=== PATIENT | female | born 1970 | race African-American/Black ===

== ENCOUNTER 2016-10-22 14:42 | Emergency (ER) | payer OTHER, SELFPAY ==
[2016-10-22] MEDS ORDERED: Ketorolac Tromethamine 30 MG/ML VIAL ONE (15:06)
[2016-10-22] MEDS ORDERED: Acetaminophen 500 MG TAB ONE (15:06)
== END 2016-10-22 15:28 | disposition home or self-care (01) ==
LOC: MADERS 14:42
DX: M54.5 Low back pain (principal)
CPT/HCPCS: 96372; J1885

== ENCOUNTER 2017-07-17 09:20 | Emergency (ER) | payer OTHER ==
[2017-07-17] MEDS ORDERED: AMOXicillin 250 MG CAP ONE (10:03)
[2017-07-17] MEDS ORDERED: Benzonatate 100 MG CAP ONE (10:03)
[2017-07-17] MEDS ORDERED: Naproxen 500 MG TAB ONE (10:03)
== END 2017-07-17 10:10 | disposition home or self-care (01) ==
LOC: MADERS 09:20
DX: J20.9 Acute bronchitis, unspecified (principal)
CPT/HCPCS: 99283

== ENCOUNTER 2018-11-01 11:32 | Emergency (ER) | payer OTHER | END 2018-11-01 12:14 | disposition home or self-care (01) | LOC: MADERS 11:32 | DX: M54.5 Low back pain (principal) | CPT/HCPCS: 99281 ==

== ENCOUNTER 2021-03-04 17:49 | Emergency (ER) | payer OTHER | END 2021-03-04 19:33 | disposition home or self-care (01) | LOC: MADERS 17:49 | DX: K02.9 Dental caries, unspecified (principal); F17.290 Nicotine dependence, other tobacco product, uncomplicated | CPT/HCPCS: 99282 ==

== ENCOUNTER 2021-05-29 15:43 | Emergency (ER) | payer OTHER | END 2021-05-29 16:35 | disposition home or self-care (01) | LOC: MADERS 15:43 | DX: J06.9 Acute upper respiratory infection, unspecified (principal); F17.210 Nicotine dependence, cigarettes, uncomplicated | CPT/HCPCS: 99283 ==

== ENCOUNTER 2021-11-30 20:57 | Emergency (ER) | payer OTHER | END 2021-11-30 21:39 | disposition home or self-care (01) | LOC: MADERS 20:57 | DX: L70.0 Acne vulgaris (principal); F17.290 Nicotine dependence, other tobacco product, uncomplicated | CPT/HCPCS: 99282 ==

== ENCOUNTER 2022-08-30 08:57 | Emergency (ER) | payer OTHER ==
[2022-08-30] MEDS ORDERED: Ketorolac Tromethamine 30 MG/ML VIAL ONE (09:30)
== END 2022-08-30 09:48 | disposition home or self-care (01) ==
LOC: MADERS 08:57
DX: S33.5XXA Sprain of ligaments of lumbar spine, initial encounter (principal); S23.3XXA Sprain of ligaments of thoracic spine, initial encounter; F17.290 Nicotine dependence, other tobacco product, uncomplicated; X50.0XXA Overexertion from strenuous movement or load, initial encounter
CPT/HCPCS: 96372; 99283; J1885

== ENCOUNTER 2022-12-29 09:45 | Outpatient (CLI) | payer OTHER ==
[2022-12-29 10:47] LABS: ALT (SGPT) 13 U/L (8-55); AST (SGOT) 16 U/L (5-34); Albumin 4.1 g/dL (3.5-5.0); Alkaline Phosphatase 53 U/L (40-110); Anion Gap 11 mmol/L (10-20); BUN (Urea Nitrogen) 17 mg/dL (9.8-20.1); Bilirubin, Total 0.2 mg/dL (0.2-1.2); Calc. Creatinine Clearance 0 mL/min (70-130); Calcium 9.7 mg/dL (7.8-10.44); Carbon Dioxide 29 mmol/L (22-29); Cardiac Risk 2.6 (Less than 4.5); Chloride 105 mmol/L (98-107); Cholesterol 206 mg/dl (< 200 Desired); Estimated GFR 93; Globulin 3.1 g/dL (2.4-3.5); Glucose 75 mg/dL (70-105); HDL Cholesterol 78 mg/dL (>60 Neg Risk); LDL Cholesterol, Calculated 116 mg/dL; Magnesium 1.9 mg/dL (1.6-2.6); Potassium 4.3 mmol/L (3.5-5.1); Protein, Total 7.2 g/dL (6.0-8.3); Sodium 141 mmol/L (136-145); Triglycerides 60 mg/dL (Less than 150); Uric Acid 4.5 mg/dL (2.6-6.0)
[2022-12-29 10:56] LABS: Hemoglobin 12.3 g/dL (12.0-16.0); Mean Corpuscular HGB CONC 31.1 g/dL (32.0-36.0); Mean Corpuscular Hemoglobin 26.7 pg (27.0-31.0); Mean Corpuscular Volume 85.7 fl (78.0-98.0); Platelet Count 268 10x3/uL (130-400); RBC Distribution Width 13.6 % (11.5-14.5); Red Blood Cell (RBC) Count 4.63 mill/uL (4.20-5.40)
[2022-12-29 10:59] LABS: Band 2 % (5-11); MDiff Complete? YES; Manual Diff?? YES; Neutrophil 52 % (42-75)
[2022-12-29 11:00] LABS: Anisocytosis SLIGHT = 6-15 cells (100X) (0-5/hpf); Eosinophils 2 % (0-10); Lymphocytes 40 % (21-51); Monocytes 6 % (0-10); Platelet Adequacy Comment Appears Adequate
[2022-12-29 17:37] LABS: Hemoglobin A1c 5.4 % (4.0-6.0)
[2022-12-29 17:57] LABS: Hep C IgG Ab Non-Reactive S/CO (NonReactive); Hep C Index 0.06 S/CO (0-0.79); Vitamin D, 25 Hydroxy 14.7 ng/ml (> 30.0)
[2022-12-30 04:40] LABS: T4 6.65 ug/dL (4.87-11.72)
== END 2022-12-29 09:46 | disposition home or self-care (01) ==
LOC: MADRAD 09:45
PROVIDERS: ATTEND Family Medicine
DX: Z12.31 Encounter for screening mammogram for malignant neoplasm of breast (principal); I10 Essential (primary) hypertension; E78.5 Hyperlipidemia, unspecified; M54.16 Radiculopathy, lumbar region; E55.9 Vitamin D deficiency, unspecified; E87.6 Hypokalemia; E03.9 Hypothyroidism, unspecified; D64.9 Anemia, unspecified; M13.0 Polyarthritis, unspecified
CPT/HCPCS: 36415; 71046; 72100; 80053; 80061; 82306; 83036; 83735; 84436; 84443; 84479; 84550; 85025; 85652; 86038; 86141; 86225; 86803

== ENCOUNTER 2023-03-15 14:47 | Outpatient (CLI) | payer OTHER | END 2023-03-15 14:48 | disposition home or self-care (01) | LOC: MADRAD 14:47 | PROVIDERS: ATTEND Family Medicine | DX: M75.101 Unspecified rotator cuff tear or rupture of right shoulder, not specified as traumatic (principal); R07.9 Chest pain, unspecified; M25.511 Pain in right shoulder; J68.4 Chronic respiratory conditions due to chemicals, gases, fumes and vapors | CPT/HCPCS: 71046 ==

== ENCOUNTER 2023-08-12 10:14 | Emergency (ER) | payer OTHER | END 2023-08-12 10:47 | disposition home or self-care (01) | LOC: MADERS 10:14 | DX: J06.9 Acute upper respiratory infection, unspecified (principal); J30.9 Allergic rhinitis, unspecified; F17.290 Nicotine dependence, other tobacco product, uncomplicated | CPT/HCPCS: 99282 ==

== ENCOUNTER 2025-05-01 16:45 | Emergency (ER) | payer OTHER ==
[2025-05-01] MEDS ORDERED: Boostrix 0.5 ML (Tdap) VIAL (>/=7 yrs of age) ONE (17:11)
[2025-05-01] MEDS ORDERED: Bacitracin 1 PK ONE (17:11)
== END 2025-05-01 17:21 | disposition home or self-care (01) ==
LOC: MADERS 16:45
DX: S61.412A Laceration without foreign body of left hand, initial encounter (principal); F17.210 Nicotine dependence, cigarettes, uncomplicated; Z23 Encounter for immunization; W25.XXXA Contact with sharp glass, initial encounter
CPT/HCPCS: 12002; 90471; 90715

== ENCOUNTER 2025-05-15 10:56 | Emergency (ER) | payer OTHER | END 2025-05-15 12:08 | disposition home or self-care (01) | LOC: MADERS 10:56 | DX: S61.412D Laceration without foreign body of left hand, subsequent encounter (principal); F17.290 Nicotine dependence, other tobacco product, uncomplicated; X58.XXXD Exposure to other specified factors, subsequent encounter ==